=== PATIENT | male | born 1935 | race African-American/Black ===

== ENCOUNTER → 2017-05-23 | Outpatient (CLI) | payer BC, MEDICARE ==
[~2017-05-23] VITALS: Ht 175.3 cm; Wt 73.6 kg
[~2017-05-23] MED LIST: ALLO300T2 PO; BUME2TAB PO; CARV3.12 PO; CENTCHW4 CHEW; CHLORHEXIDINE GLUCONATE 2 % 1 PACK (2 CLOTHS) TOPICAL PRN; CODCAP6 PO; LACTATED RINGER'S 1000 ML IV PRN; METOPROLOL TARTRATE 25 MG TAB PO PRN; OMEP20TA93 PO; POVIDONE IODINE 5% (ANTISEPSIS KIT) 4 APPLICATIONS EACH NARE PRN; SODIUM CHLORID 0.9% 500 ML IV PRN; TAMS0.4C4 PO; VITA1000 PO
--- NOTE | 2017-05-23 14:06 | GIPROC ---
[facility] [address] [facility]. [facility], [address] FLEXIBLE SIGMOIDOSCOPY PROCEDURE REPORT EXAM DATE: 05/23/2017 PATIENT NAME: Oscar De Los Santos MR #: [id number] BIRTHDATE: 1935 ORDER #: [id number] ATTENDING: Daniel Payne MD CANE PACKER: Skip Esteban and Katie Viveros STATUS: outpatient INDICATIONS: The patient is a 81 yr old male here for a flexible sigmoidoscopy due to chronic rectal bleeding; he's received radiation therapy for prostate cancer. PROCEDURE PERFORMED: Flexible Sigmoidoscopy with control of bleeding Flexible Sigmoidoscopy with ablation therapy MEDICATIONS: None ESTIMATED BLOOD LOSS: None CONSENT: The patient understands the risks and benefits of the procedure and understands that these risks include, but are not limited to: sedation, allergic reaction, infection, perforation and/or bleeding. Alternative means of evaluation and treatment include, among others: physical exam, x-rays, and/or surgical intervention. The patient elects to proceed with this endoscopic procedure. medical equipment was checked for proper function. Hand hygiene and appropriate measures for infection prevention was taken. After the risks, benefits and alternatives of the procedure were thoroughly explained, Informed consent was verified, confirmed and timeout was successfully executed by the treatment team. A digital rectal exam revealed no abnormalities of the rectum The Pentax EG-[id number] endoscope was introduced through the anus and advanced to the sigmoid colon. The prep was good. The instrument was then slowly withdrawn as the colon was fully examined. 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 The region was washed and suctioned clear. Bleeding was stopped with APC and ablation was performed with the APC apparatus, using the circumerential probe and the Rectal setting. Good hemostasis and cautery were noted. Retroflexion revealed radiation telangiectasias with no internal hemorrhoids. The scope was then completely withdrawn from the patient and the procedure terminated. ADVERSE EVENTS: There were no complications. IMPRESSIONS: 1. 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 The region was washed and suctioned clear. Bleeding was stopped with APC and ablation was performed with the APC apparatus, using the circumerential probe and the Rectal setting. Good hemostasis and cautery were noted 2. Revealed radiation telangiectasias and no internal hemorrhoids. RECOMMENDATIONS: Preparation H suppositories, one per rectum each evening for seven nights, then as needed for bleeding. Resume prior diet/medications. RECALL: As needed if bleeding recurs. Daniel Payne MD eSigned: Daniel Payne MD 05/23/2017 2:06 PM cc: Mansoor Menon M.D. PATIENT NAME: Oscar De Los Santos MR#: [id number]
[2017-05-23 15:00] VITALS: BP 121/82; PULSE 102; RESP 22; TEMP 97.3; O2SAT 95
--- NOTE | 2017-05-25 00:07 | EKG ---
Date Performed: 05/23/2017 Time Performed: 12:19:18 PTAGE: 81 years EKG: ELECTRONIC VENTRICULAR PACEMAKER ABNORMAL RHYTHM ECG PREVIOUS TRACING : 10/15/2002 08.40 Compared to prior tracing, now Vpaced DOCTOR: Bernardino Pierson Interpretating Date/Time 05/25/2017 00:07:02
== END ==
LOC: HEND 11:38
DX: K62.5 Hemorrhage of anus and rectum (principal); K62.7 Radiation proctitis; C61 Malignant neoplasm of prostate; Z01.810 Encounter for preprocedural cardiovascular examination
CPT/HCPCS: 93005